=== PATIENT | male | born 1955 | race Caucasian/White ===

== ENCOUNTER 2018-04-03 12:30 | Emergency (ER) | payer OTHER ==
--- OUTSIDE RECORDS SUMMARY | 2018-04-03 12:32 | XMS REPORT ---
:1955 Author Organization eClinicalWorks Care Team Providers Name Role Phone Ajit Rafa Provider Role Unavailable Allergies No Known Allergies Problems Problem Type Condition Code Onset Dates Condition Status Assessment Uncontrolled type 2 diabetes E11.65 Active mellitus with hyperglycemia, without long-term current use of insulin Problem Uncontrolled type 2 diabetes E11.65 Active mellitus with hyperglycemia, without long-term current use of insulin Problem Cataract H26.9 Active Problem Diabetes type 2, controlled E11.9 Active Problem Benign essential HTN I10 Active Problem Hyperlipidemia, mixed E78.2 Active Problem CA of prostate C61 Active Problem Glaucoma H40.9 Active Problem Erectile dysfunction N52.9 Active Medications Medication Code System Code Instructions Start Date End Date Status Dosage Jardiance [facility] 18583268205 25 MG Orally Once Active 1 tablet a day Results No Known Results Summary Purpose eClinicalWorks Submission
--- OUTSIDE RECORDS SUMMARY | 2018-04-03 12:32 | XMS REPORT ---
:1955 Author Organization eClinicalWorks Care Team Providers Name Role Phone Rafa Fong Provider Role Unavailable Allergies No Known Allergies [...] H40.9 Active Problem Erectile dysfunction N52.9 Active Assessment CA of prostate C61 Active Assessment Erectile dysfunction N52.9 Active Assessment Cataract H26.9 Active Assessment Hyperlipidemia, mixed E78.2 Active Assessment Glaucoma H40.9 Active Assessment Benign essential HTN I10 Active Medications Medication Code Code Instructions Start End Status Dosage System Date Date Metformin HCl ND 81298700015 1000 MG Orally Active 1 tablet Twice a day with meals Jardiance [facility] 64033383485 25 MG Orally May 25, Active 1 tablet Once a day 2017 Aspir-81 [facility] 54241976701 81 MG Orally Active 1 tablet Once a day Hyzaar [facility] 92633680984 100-25 MG Orally Active 1 tablet Once a day Victoza [facility] 32233381364 18 MG/3ML May 25, Active as directed Subcutaneous 2017 once a day Cialis ND 76187077441 10 MG Orally Active 1 tablet as needed Combigan [facility] 80515132996 0.2-0.5 % Active 1 drop into Ophthalmic Twice affected a day eye Livalo ND 52992185024 2 MG Orally Once Feb 24, Active 1 tablet a day 2017 Amlodipine ND 90778271813 10 MG Orally Active 1 tablet Besylate Once a day Lumigan ND 52609660578 0.01 % Active 1 drop into Ophthalmic Once affected a day eye in the evening Results No Known Results Summary Purpose eClinicalWorks Submission
--- OUTSIDE RECORDS SUMMARY | 2018-04-03 12:32 | XMS REPORT ---
:1955 Author Organization eClinicalWorks Care Team Providers Name Role Phone Rafa Fong Provider Role Unavailable Allergies No Known Allergies Problems Problem Type Condition Code Onset Dates Condition Status Assessment Benign essential HTN I10 Active Problem Uncontrolled type 2 diabetes E11.65 Active mellitus with hyperglycemia, without long-term current use of insulin Assessment Uncontrolled type 2 diabetes E11.65 Active mellitus with hyperglycemia, without long-term current use of insulin Problem Cataract H26.9 Active Problem Diabetes type 2, controlled E11.9 Active Problem Benign essential HTN I10 Active Problem Hyperlipidemia, mixed E78.2 Active Problem CA of prostate C61 Active Problem Glaucoma H40.9 Active Problem Erectile dysfunction N52.9 Active Assessment Glaucoma H40.9 Active Assessment CA of prostate C61 Active Assessment Erectile dysfunction N52.9 Active Assessment Cataract H26.9 Active Assessment Hyperlipidemia, mixed E78.2 Active Medications Medication Code Code Instructions Start End Status Dosage System Date Date Metformin HCl ND 73945228879 1000 MG Orally Active 1 tablet Twice a day with meals Lumigan [facility] 31958135828 0.01 % Active 1 drop into Ophthalmic Once affected a day eye in the evening Victoza [facility] 89511943564 18 MG/3ML January Active as directed Subcutaneous , once a day 2017 Aspir-81 ND 06459967331 81 MG Orally Active 1 tablet Once a day Hyzaar [facility] 65574821405 100-25 MG Orally Active 1 tablet Once a day Jardiance ND 81497462210 25 MG Orally January Active 1 tablet Once a day 2017 Cialis ND 32744583584 10 MG Orally Active 1 tablet as needed Combigan [facility] 21186221985 0.2-0.5 % Active 1 drop into Ophthalmic Twice affected a day eye Amlodipine ND 61751415705 10 MG Orally Active 1 tablet Besylate Once a day Results No Known Results Summary Purpose eClinicalWorks Submission
--- OUTSIDE RECORDS SUMMARY | 2018-04-03 12:32 | XMS REPORT ---
:1955 Author Organization eClinicalWorks Care Team Providers Name Role Phone Rafa Fong Provider Role Unavailable Allergies No Known Allergies Problems Problem Type Condition Code Onset Dates Condition Status Assessment Hyperlipidemia, mixed E78.2 Active Problem Uncontrolled type 2 diabetes E11.65 Active mellitus with hyperglycemia, without long-term current use of insulin Problem Cataract H26.9 Active Problem Diabetes type 2, controlled E11.9 Active Problem Benign essential HTN I10 Active Problem Hyperlipidemia, mixed E78.2 Active Problem CA of prostate C61 Active Problem Glaucoma H40.9 Active Problem Erectile dysfunction N52.9 Active Medications Medication Code Code Instructions Start End Status Dosage System Date Date Cialis [facility] 24799533145 10 MG Orally Active 1 tablet as needed Lumigan [facility] 97366870944 0.01 % Active 1 drop into Ophthalmic Once affected a day eye in the evening Combigan [facility] 11761859752 0.2-0.5 % Active 1 drop into Ophthalmic affected Twice a day eye Jardiance [facility] 19314168757 25 MG Orally May 25, Active 1 tablet Once a day 2017 Crestor ND 31309536888 5 MG Orally Mar 16, Active 1 tablet at Once a day 2018 bedtime Aspir-81 [facility] 38755383653 81 MG Orally Active 1 tablet Once a day Hyzaar [facility] 21927504990 100-25 MG Active 1 tablet Orally Once a day Amlodipine ND 48151062468 10 MG Orally Active 1 tablet Besylate Once a day Metformin HCl ND 22878056158 1000 MG Orally Active 1 tablet Twice a day with meals Victoza [facility] 19306800243 18 MG/3ML May 25, Active as directed Subcutaneous 2018 once a day Livalo ND 11240559243 2 MG Orally Feb 24, Inactive 1 tablet Once a day 2018 Results No Known Results Summary Purpose eClinicalWorks Submission
[2018-04-03] MEDS ORDERED: PANTOPRAZOLE 40 MG INJ ONE (15:02)
[2018-04-03] MEDS ORDERED: NA CHLORIDE 0.9% 1,000 ML ONE (15:02)
[2018-04-03 15:39] LABS: Absolute Lymphocytes (CBC) 1.9 K/uL (0.7-4.9); Absolute Monocytes 0.6 K/uL (0.1-1.3); Absolute Neutrophil 4.6 K/uL (1.8-8.0); Basophils % 0.4 % (0-1.3); Eosinophils % 2.3 % (0-4.4); Hematocrit 46.4 % (39.6-49.0); Lymphocytes % 26.5 % (15.3-44.8); MCH 30.2 pg (27.0-35.0); MCV 88.1 fL (80-100); MPV 8.9 fL (7.6-11.3); Monocytes % 8.4 % (3.3-12.3); RBC Red Blood Cell Count 5.26 M/uL (4.33-5.43)
[2018-04-03 15:56] LABS: Urine Blood NEGATIVE (NEG); Urine Glucose 2+ (NEG); Urine Protein NEGATIVE (NEG); Urine pH 5.5 (5.0-7.0)
[2018-04-03 15:59] LABS: ALT/SGPT 68 U/L (12-78); AST/SGOT 34 U/L (15-37); Albumin 3.8 g/dL (3.4-5.0); Alkaline Phosphatase 53 U/L (45-117); BUN Blood Urea Nitrogen 15 mg/dL (7-18); Bicarbonate 24 mmol/L (21-32); Bilirubin Direct 0.1 mg/dL (0-0.2); Bilirubin Total 0.6 mg/dL (0.2-1.0); Glucose Level 93 mg/dL (74-106); Lipase 188 U/L (73-393); Potassium 3.5 mmol/L (3.5-5.1); Protein, Total 7.2 g/dL (6.4-8.2); Sodium Level 141 mmol/L (136-145); Troponin I < 0.02 ng/mL (0.0-0.045)
[2018-04-03 16:12] LABS: Urine Bacteria <20 /HPF (NONE SEEN); Urine Culture Reflex Order NOT NEEDED; Urine RBC <5 /HPF (NONE SEEN)
--- NOTE | 2018-04-03 16:51 | RAD REPORT ---
EXAM DESCRIPTION: CT - Abdomen Pelvis W Contrast - 04/03/2018 4:22 pm CLINICAL HISTORY: Abdominal pain/upper abdominal pain for 3 weeks COMPARISON: none. TECHNIQUE: Computed axial tomography of the abdomen pelvis was obtained. 100 cc Isovue-300 was admin istered intravenously. Oral contrast was not requested which limits evaluation of bowel. All CT scans are performed using dose optimization technique as appropriate and may include automated exposure control or mA/KV adjustment according to patient size. FINDINGS: Fatty infiltration liver is present. Spleen, pancreas, and adrenals appear unremarkable. A small calcified splenic arterial aneurysm is pr esent. Small renal cysts are present. There is no evidence of diverticulitis. The appendix is normal Inguinal hernias contain fat The gallbladder is mildly distended. Gallbladder wall thickness is normal IMPRESSION: Mild gallbladder distention
--- NOTE | 2018-04-03 17:17 | EDPHYS ---
Physician Documentation [facility] Name: Yariel Vaughn Jr Age: 63 yrs Sex: Male : 1955 Arrival Date: 04/03/2018 Time: 12:34 Bed 25 Private MD: ED Physician Mian Saab HPI: 04/03 15:48 This 63 yrs old Male presents to ER via Ambulatory with complaints of wa Abdominal Pain, Black/Tarry Stools. 15:48 The patient presents to the emergency department dark tarry stools. Onset: The wa symptoms/episode began/occurred 3 day(s) ago. Abdominal pain: described as achy, located in the epigastric area, right upper quadrant and left upper quadrant, that does not radiate. Modifying factors: The symptoms are alleviated by nothing, the symptoms are aggravated by nothing. Associated signs and symptoms: Pertinent negatives: chest pain, diarrhea, fever, shortness of breath, syncope, vomiting. Severity of symptoms: At their worst the symptoms were moderate in the emergency department the symptoms are unchanged. The patient has not experienced similar symptoms in the past. The patient has not recently seen a physician. Historical: - Allergies: 12:52 PENICILLINS; aj - Home Meds: 12:52 Victoza 2-Abhishek subcutaneous subcutaneous [Active]; amlodipine [Active]; Metformin Oral aj [Active]; losartan oral [Active]; Jardiance oral oral [Active]; - PMHx: 12:52 Diabetes - IDDM; Hypertension; Hyperlipidemia; aj - PSHx: 12:52 Tonsillectomy; aj - Immunization history:: Adult Immunizations up to date. - Social history:: Smoking status: Patient/guardian denies using tobacco. - Ebola Screening: : Patient negative for fever greater than or equal to 101.5 degrees Fahrenheit, and additional compatible Ebola Virus Disease symptoms Patient denies exposure to infectious person Patient denies travel to an Ebola-affected area in the 21 days before illness onset No symptoms or risks identified at this time. - Family history:: not pertinent. - Hospitalizations: : No recent hospitalization is reported. ROS: 15:49 Constitutional: Negative for fever, chills, and weight loss, Eyes: Negative for injury, wa pain, redness, and discharge, ENT: Negative for injury, pain, and discharge, Neck: Negative for injury, pain, and swelling, Cardiovascular: Negative for chest pain, palpitations, and edema, Respiratory: Negative for shortness of breath, cough, wheezing, and pleuritic chest pain, Back: Negative for injury and pain, : Negative for injury, bleeding, discharge, and swelling, MS/Extremity: Negative for injury and deformity, Skin: Negative for injury, rash, and discoloration, Neuro: Negative for headache, weakness, numbness, tingling, and seizure, Psych: Negative for depression, anxiety, suicide ideation, homicidal ideation, and hallucinations. 15:49 Abdomen/GI: Positive for abdominal pain, black/tarry stool, rectal bleeding, Negative for nausea, vomiting. 15:49 All other systems are negative. Exam: 15:50 Constitutional: This is a well developed, well nourished patient who is awake, alert, wa and in no acute distress. Head/Face: Normocephalic, atraumatic. Eyes: Pupils equal round and reactive to light, extra-ocular motions intact. Lids and lashes normal. Conjunctiva and sclera are non-icteric and not injected. Cornea within normal limits. Periorbital areas with no swelling, redness, or edema. ENT: Nares patent. No nasal discharge, no septal abnormalities noted. Tympanic membranes are normal and external auditory canals are clear. Oropharynx with no redness, swelling, or masses, exudates, or evidence of obstruction, uvula midline. Mucous membranes moist. Neck: Trachea midline, no thyromegaly or masses palpated, and no cervical lymphadenopathy. Supple, full range of motion without nuchal rigidity, or vertebral point tenderness. No Meningismus. Chest/axilla: Normal chest wall appearance and motion. Nontender with no deformity. No lesions are appreciated. Cardiovascular: Regular rate and rhythm with a normal S1 and S2. No gallops, murmurs, or rubs. Normal PMI, no JVD. No pulse deficits. Respiratory: Lungs have equal breath sounds bilaterally, clear to auscultation and percussion. No rales, rhonchi or wheezes noted. No increased work of breathing, no retractions or nasal flaring. Back: No spinal tenderness. No costovertebral tenderness. Full range of motion. Male : Normal genitalia with no discharge or lesions. Skin: Warm, dry with normal turgor. Normal color with no rashes, no lesions, and no evidence of cellulitis. MS/ Extremity: Pulses equal, no cyanosis. Neurovascular intact. Full, normal range of motion. Neuro: Awake and alert, GCS 15, oriented to person, place, time, and situation. Cranial nerves II-XII grossly intact. Motor strength 5/5 in all extremities. Sensory grossly intact. Cerebellar exam normal. Normal gait. 15:50 Abdomen/GI: Inspection: abdomen appears normal, Bowel sounds: normal, in all quadrants, Palpation: soft, mild abdominal tenderness, in the epigastric area and right upper quadrant. Vital Signs: 12:52 BP 120 / 91; Pulse 89; Resp 17; Temp 98.6; Pulse Ox 96% on R/A; Weight 104.33 kg; aj Height 6 ft. 2 in. (187.96 cm); 14:10 BP 122 / 81; Pulse 81; Resp 18; Pulse Ox 100% on R/A; tl3 16:05 BP 147 / 113; Pulse 75; Resp 18; Pulse Ox 98% ; tl3 17:39 BP 140 / 91; Pulse 70; Resp 18; Pulse Ox 98% on R/A; mg2 12:52 Body Mass Index 29.53 (104.33 kg, 187.96 cm) MDM: 13:13 Patient medically screened. wa 15:51 Differential diagnosis: upper GI bleed secondary to PUD?. wa 15:52 Data reviewed: vital signs, nurses notes. Test interpretation: by ED physician or sc midlevel provider: EKG: HR 79. sinus. occasional PVC.. 17:13 Test interpretation: by ED physician or midlevel provider: normal labs. EKG: HR 79. wa occasional PVC. Response to treatment: the patient's symptoms have markedly improved after treatment. ED course: no noted dark stools in ED. vitals and labs wnl. do not have GI director of industrial relations. will start protonix Q day and have f/u closely with GI. advised immediate return for rapid worsening. 04/03 13:40 Order name: Basic Metabolic Panel; Complete Time: 17:00 04/03 13:40 Order name: CBC with Diff; Complete Time: 15:47 sc 04/03 13:40 Order name: Hepatic Function; Complete Time: 17:00 04/03 13:40 Order name: Lipase; Complete Time: 17:00 04/03 13:40 Order name: Urine Microscopic Only; Complete Time: 17:00 sc 04/03 13:40 Order name: Type And Screen; Complete Time: 17: sc 04/03 13:40 Order name: IV Saline Lock; Complete Time: 15: sc 04/03 13:40 Order name: Labs collected and sent; Complete Time: 15:04/03 13:40 Order name: Troponin I; Complete Time: 17: sc 04/03 13:41 Order name: CT Abd/Pelvis - W/Contrast; Complete Time: 17: sc 04/03 15:35 Order name: Urine Dipstick--Ancillary (enter results); Complete Time: 17: 04/03 13:40 Order name: Urine Dipstick-Ancillary (obtain specimen); Complete Time: 15: sc 04/03 13:40 Order name: EKG - Nurse/Tech; Complete Time: 14:30 sc Administered Medications: Discontinued: ProTONIX 8 mg/hr IV at 25 ml/hr continuous; (Standard dilution is 80 mg in 250 mL NS) 15:10 Drug: ProTONIX 40 mg Route: IVP; Site: right forearm; tl3 17:41 Follow up: Response: No adverse reaction mg2 15:10 Drug: ProTONIX 8 mg/hr Route: IV; Rate: 25 ml/hr; Site: right forearm; tl3 15:10 Drug: NS 0.9% 1000 ml Route: IV; Rate: 1 bolus; Site: right forearm; Delivery: Primary tl3 tubing; 17:41 Follow up: IV Status: Completed infusion; IV Intake: 1000ml mg2 Disposition: 04/03/18 17:16 Discharged to Home. Impression: Acute Abdomimal Pain, Dark Tarry Stools. - Condition is Stable. - Discharge Instructions: Abdominal Pain, Adult, Gastrointestinal Bleeding, Crez-ql-Uide. - Prescriptions for Protonix 40 mg Oral Tablet - take 1 tablet by ORAL route once daily; 30 tablet. Zofran 4 mg Oral Tablet - take 1 tablet by ORAL route every 12 hours As needed; 20 tablet. - Medication Reconciliation Form, Thank You Letter, Antibiotic Education, Prescription Opioid Use form. - Follow up: Mian Pelaez MD; When: 1 - 2 days. Follow up: Josee Coyne MD; When: 1 - 2 days; Reason: Recheck today's complaints. - Problem is new. - Symptoms have improved. - Notes: the concern is you may be having a bleeding gastric or duodenal ulcer. your labs and scan are normal at this time. retirn here if rapidly worsening. call the 2 gastro doctors and make appointment to be seen immediately. you will need endoscopy. take protonix as prescribed. you may take tylenol for pain but do not inget NSAIDs as discussed with you Signatures: Dispatcher [employer] EDRhea Monet RN RN aj Mian Saab MD MD wa Lowrey, Tammy, RN RN tl3 Hamzah Adrian RN RN mg2 Corrections: (The following items were deleted from the chart) 17:43 17:16 04/03/2018 17:16 Discharged to Home. Impression: Acute Abdomimal Pain; Dark Tarry mg2 Stools. Condition is Stable. Forms are Medication Reconciliation Form, Thank You Letter, Antibiotic Education, Prescription Opioid Use. Follow up: Mian Pelaez; When: 1 - 2 days. Follow up: Josee Coyne; When: 1 - 2 days; Reason: Recheck today's complaints. Problem is new. Symptoms have improved. lara
--- NOTE | 2018-04-03 17:17 | ER ---
Nurse's Notes [facility] Name: Yariel Vaughn Jr Age: 63 yrs Sex: Male : 1955 Arrival Date: 04/03/2018 Time: 12:34 Bed 25 Private MD: Diagnosis: Acute Abdomimal Pain;Dark Tarry Stools Presentation: 04/03 12:49 Presenting complaint: Patient states: Upper abdominal pain for 3 weeks with black tarry aj stools. Transition of care: patient was not received from another setting of care. Onset of symptoms was March 12, 2018. Risk Assessment: Do you want to hurt yourself or someone else? Patient reports no desire to harm self or others. Initial Sepsis Screen: Does the patient meet any 2 criteria? No. Patient's initial sepsis screen is negative. Does the patient have a suspected source of infection? No. Patient's initial sepsis screen is negative. Care prior to arrival: None. 12:49 Method Of Arrival: Ambulatory aj 12:49 Acuity: THEODORE 3 aj Triage Assessment: 12:52 General: Appears in no apparent distress. comfortable, Behavior is calm, cooperative, aj appropriate for age. Pain: Complains of pain in epigastric area, right upper quadrant and left upper quadrant. Neuro: Level of Consciousness is awake, alert, obeys commands, Oriented to person, place, time, situation, Appropriate for age. Respiratory: Airway is patent Respiratory effort is even, unlabored, Respiratory pattern is regular, symmetrical. GI: Reports upper abdominal pain, bloody stool. Derm: Skin is intact, is healthy with good turgor, Skin is pink, warm \T\ dry. normal. Historical: - Allergies: 12:52 PENICILLINS; aj - Home Meds: 12:52 Victoza 2-Abhishek subcutaneous subcutaneous [Active]; amlodipine [Active]; Metformin Oral aj [Active]; losartan oral [Active]; Jardiance oral oral [Active]; - PMHx: 12:52 Diabetes - IDDM; Hypertension; Hyperlipidemia; aj - PSHx: 12:52 Tonsillectomy; aj - Immunization history:: Adult Immunizations up to date. - Social history:: Smoking status: Patient/guardian denies using tobacco. - Ebola Screening: : Patient negative for fever greater than or equal to 101.5 degrees Fahrenheit, and additional compatible Ebola Virus Disease symptoms Patient denies exposure to infectious person Patient denies travel to an Ebola-affected area in the 21 days before illness onset No symptoms or risks identified at this time. - Family history:: not pertinent. - Hospitalizations: : No recent hospitalization is reported. Screenin:15 Abuse screen: Denies threats or abuse. Nutritional screening: No deficits noted. tl3 Tuberculosis screening: No symptoms or risk factors identified. Fall Risk None identified. Assessment: 13:15 General: Appears in no apparent distress. comfortable, slender, well groomed, well tl3 developed, well nourished, Behavior is calm, cooperative, appropriate for age. Pain: Complains of pain in abdomen and left upper quadrant and right upper quadrant and epigastric area. Neuro: Level of Consciousness is awake, alert, obeys commands, Oriented to person, place, time, situation, Appropriate for age. Cardiovascular: Patient's skin is warm and dry. Respiratory: Airway is patent Respiratory effort is even, unlabored, Respiratory pattern is regular, symmetrical. GI: Abdomen is round Bowel sounds present X 4 quads. Abd is soft. : No signs and/or symptoms were reported regarding the genitourinary system. Urine is clear. EENT: No signs and/or symptoms were reported regarding the EENT system. Derm: No signs and/or symptoms reported regarding the dermatologic system. Musculoskeletal: No signs and/or symptoms reported regarding the musculoskeletal system. 15:46 Reassessment: Patient appears in no apparent distress at this time. No changes from tl3 previously documented assessment. Patient and/or family updated on plan of care and expected duration. Pain level reassessed. Patient is alert, oriented x 3, equal unlabored respirations, skin warm/dry/pink. no needs at this time. 17:39 Reassessment: Patient appears in no apparent distress at this time. No changes from mg2 previously documented assessment. Patient and/or family updated on plan of care and expected duration. Pain level reassessed. Patient is alert, oriented x 3, equal unlabored respirations, skin warm/dry/pink. Vital Signs: 12:52 BP 120 / 91; Pulse 89; Resp 17; Temp 98.6; Pulse Ox 96% on R/A; Weight 104.33 kg; aj Height 6 ft. 2 in. (187.96 cm); 14:10 BP 122 / 81; Pulse 81; Resp 18; Pulse Ox 100% on R/A; tl3 16:05 BP 147 / 113; Pulse 75; Resp 18; Pulse Ox 98% ; tl3 17:39 BP 140 / 91; Pulse 70; Resp 18; Pulse Ox 98% on R/A; mg2 12:52 Body Mass Index 29.53 (104.33 kg, 187.96 cm) aj ED Course: 12:34 Patient arrived in ED. mr 12:51 Triage completed. aj 12:52 Arm band placed on left wrist. Patient placed in waiting room, Patient notified of wait aj time. 13:10 Patient has correct armband on for positive identification. Placed in gown. Bed in low tl3 position. Call light in reach. 13:12 Toshia Schulz, RN is Primary Nurse. tl3 13:13 Mian Saab MD is Attending Physician. wa 13:15 Pulse ox on. NIBP on. Warm blanket given. tl3 13:15 Served as a field contact person during rectal exam. tl3 13:30 EKG done, by ED staff, reviewed by Mian Saab MD. [facility] 14:12 Radiology exam delayed due to lab results not completed at this time. (BUN/Creatinine). 15:19 Initial lab(s) drawn, by ct, sent to lab. Urine collected: clean catch specimen. tl3 Inserted saline lock: 20 gauge in right forearm, using aseptic technique. Blood collected. 16:21 CT completed. Patient moved to CT via wheelchair. Patient moved back from CT. cw1 16:23 CT Abd/Pelvis - W/Contrast In Process Unspecified. EDIL 17:15 Mian Pelaez MD is Referral Physician. wa 17:15 Josee Coyne MD is Referral Physician. wa 17:39 IV discontinued, intact, bleeding controlled, No redness/swelling at site. Pressure mg2 dressing applied. Administered Medications: Discontinued: ProTONIX 8 mg/hr IV at 25 ml/hr continuous; (Standard dilution is 80 mg in 250 mL NS) 15:10 Drug: ProTONIX 40 mg Route: IVP; Site: right forearm; tl3 17:41 Follow up: Response: No adverse reaction mg2 15:10 Drug: ProTONIX 8 mg/hr Route: IV; Rate: 25 ml/hr; Site: right forearm; tl3 15:10 Drug: NS 0.9% 1000 ml Route: IV; Rate: 1 bolus; Site: right forearm; Delivery: Primary tl3 tubing; 17:41 Follow up: IV Status: Completed infusion; IV Intake: 1000ml mg2 Intake: 17:41 IV: 1000ml; Total: 1000ml. mg2 Outcome: 17:16 Discharge ordered by . lara 17:39 Discharged to home ambulatory. mg2 17:39 Condition: stable 17:39 Discharge instructions given to patient, Instructed on discharge instructions, follow up and referral plans. medication usage, Demonstrated understanding of instructions, follow-up care, medications, Prescriptions given X 2. 17:43 Patient left the ED. mg2 Signatures: Dispatcher [employer] EDMS Rhea Hawthorne, RN RN Rosalee Wisdom, Sheree Adhikari, Shira 1 Rosalee Nguyen [facility] Mian Saab MD MD wa Lowrey, Tammy, RN RN tl3 Hamzah Adrian RN RN mg2 Corrections: (The following items were deleted from the chart) 15:47 13:15 BP 122 / 81; Pulse 81bpm; Resp 18bpm; Pulse Ox 100% RA; tl3 tl3
--- NOTE | 2018-04-05 06:56 | EKG ---
Test Date: 2018-04-03 Test Time: 13:34:58 Unit Director: MILTON MEASUREMENT RESULTS: Intervals: Rate: 79 IA: 166 QRSD: 84 QT: 406 QTc: 465 [place]: P: 54 IA: 166 QRS: 2 T: 44 INTERPRETIVE STATEMENTS: Sinus rhythm with occasional premature ventricular complexes Otherwise normal ECG Compared to ECG 01/16/2015 15:12:46 Ventricular premature complex(es) now present Electronically Signed On 04-05-18 06:51:45 CDT by Fransisco Piedra
== END 2018-04-03 17:43 | disposition home or self-care (01) ==
LOC: ER 12:30
DX: R10.9 Unspecified abdominal pain (principal); R19.5 Other fecal abnormalities; E11.9 Type 2 diabetes mellitus without complications; I10 Essential (primary) hypertension; E78.5 Hyperlipidemia, unspecified; Z88.0 Allergy status to penicillin
CPT/HCPCS: 36415; 74177; 80048; 80076; 81003; 81015; 83690; 84484; 85025; 86850; 86900; 86901; 93005; 96361; 96374; 99285; C9113; J7030; Q9967

== ENCOUNTER 2018-06-10 11:57 | Emergency (ER) | payer OTHER ==
--- OUTSIDE RECORDS SUMMARY | 2018-06-10 11:58 | XMS REPORT ---
[...] Dosage System Date Date Metformin HCl ND 54412581373 1000 MG Orally Active 1 tablet Twice a day with meals Lumigan [facility] 00286683195 0.01 % Active 1 drop into Ophthalmic Once affected a day eye in the evening Victoza [facility] 02328786850 18 MG/3ML January Active as directed Subcutaneous , once a day 2017 Aspir-81 ND 94044937062 81 MG Orally Active 1 tablet Once a day Hyzaar [facility] 84838503633 100-25 MG Orally Active 1 tablet Once a day Jardiance ND 28661336379 25 MG Orally January Active 1 tablet Once a day 2017 Cialis ND 44513584031 10 MG Orally Active 1 tablet as needed Combigan [facility] 25274236677 0.2-0.5 % Active 1 drop into Ophthalmic Twice affected a day eye Amlodipine ND 40086073387 10 MG Orally Active 1 tablet Besylate Once a day Results No Known Results Summary Purpose eClinicalWorks Submission
--- OUTSIDE RECORDS SUMMARY | 2018-06-10 11:58 | XMS REPORT ---
[...] End Status Dosage System Date Date Cialis [facility] 11920737262 10 MG Orally Active 1 tablet as needed Lumigan [facility] 93914799541 0.01 % Active 1 drop into Ophthalmic Once affected a day eye in the evening Combigan [facility] 30021380146 0.2-0.5 % Active 1 drop into Ophthalmic affected Twice a day eye Jardiance [facility] 12738289877 25 MG Orally May 25, Active 1 tablet Once a day 2017 Crestor ND 45116753362 5 MG Orally Mar 16, Active 1 tablet at Once a day 2018 bedtime Aspir-81 [facility] 94174823983 81 MG Orally Active 1 tablet Once a day Hyzaar [facility] 86450371186 100-25 MG Active 1 tablet Orally Once a day Amlodipine ND 30492742321 10 MG Orally Active 1 tablet Besylate Once a day Metformin HCl ND 55178574321 1000 MG Orally Active 1 tablet Twice a day with meals Victoza [facility] 97239056789 18 MG/3ML May 25, Active as directed Subcutaneous 2018 once a day Livalo ND 23055864678 2 MG Orally Feb 24, Inactive 1 tablet Once a day 2018 Results No Known Results Summary Purpose eClinicalWorks Submission
--- OUTSIDE RECORDS SUMMARY | 2018-06-10 11:58 | XMS REPORT ---
[...] Dosage System Date Date Metformin HCl ND 63630428762 1000 MG Orally Active 1 tablet Twice a day with meals Jardiance [facility] 14750226864 25 MG Orally May 25, Active 1 tablet Once a day 2017 Aspir-81 [facility] 97981679538 81 MG Orally Active 1 tablet Once a day Hyzaar [facility] 59193342236 100-25 MG Orally Active 1 tablet Once a day Victoza [facility] 29166280382 18 MG/3ML May 25, Active as directed Subcutaneous 2017 once a day Cialis ND 55291123082 10 MG Orally Active 1 tablet as needed Combigan [facility] 93334413054 0.2-0.5 % Active 1 drop into Ophthalmic Twice affected a day eye Livalo ND 79824227563 2 MG Orally Once Feb 24, Active 1 tablet a day 2017 Amlodipine ND 97010711572 10 MG Orally Active 1 tablet Besylate Once a day Lumigan ND 98500924120 0.01 % Active 1 drop into Ophthalmic Once affected a day eye in the evening Results No Known Results Summary Purpose eClinicalWorks Submission
--- OUTSIDE RECORDS SUMMARY | 2018-06-10 11:58 | XMS REPORT ---
[...] Start Date End Date Status Dosage Jardiance [facility] 71321757111 25 MG Orally Once Active 1 tablet a day Results No Known Results Summary Purpose eClinicalWorks Submission
--- NOTE | 2018-06-10 13:00 | RAD REPORT ---
EXAM DESCRIPTION: RAD - Hand Right 3 View - 06/10/2018 12:40 pm CLINICAL HISTORY: laceration injury COMPARISON: No comparisons FINDINGS: Fourth digit mallet finger deformity is seen. Small bony avulsion is likely present the DI P joint. Soft tissue laceration also present region. Elsewhere, a fracture or dislocation is seen.
[2018-06-10] MEDS ORDERED: CEFAZOLIN SODIUM 1 GM/VIAL ONE (13:10)
[2018-06-10] MEDS ORDERED: LIDOCAINE 1% MPF 5 ML VIAL ONE (13:10)
[2018-06-10] MEDS ORDERED: TETANUS & DIPHTHERIA TOX,ADULT 0.5 ML VIAL ONE (13:10)
[2018-06-10] MEDS ORDERED: WATER FOR INJ,STERILE 10 ML ONE (13:13)
--- NOTE | 2018-06-10 13:46 | ER ---
Nurse's Notes [facility] Name: Yariel Vaughn Jr Age: 63 yrs Sex: Male : 1955 Arrival Date: 06/10/2018 Time: 11:59 Bed 13 Private MD: Rafa Fong Diagnosis: Laceration without foreign body of finger without damage to nail-Right Fourth;Avulsion Fracture of DIP joint right fourth Finger Presentation: 06/10 12:10 Presenting complaint: Patient states: A cup fell out of the cabinet and broke on his aj1 right ring finger. Laceration noted to right ring finger, no bleeding noted at this time. Right ring finger is bent at the first knuckle, patient states that he is unable to straighten it. Transition of care: patient was not received from another setting of care. Onset of symptoms was June 10, 2018. Risk Assessment: Do you want to hurt yourself or someone else? Patient reports no desire to harm self or others. Initial Sepsis Screen: Does the patient meet any 2 criteria? No. Patient's initial sepsis screen is negative. Does the patient have a suspected source of infection? No. Patient's initial sepsis screen is negative. Care prior to arrival: None. 12:10 Method Of Arrival: Ambulatory aj1 12:10 Acuity: THEODORE 4 aj1 Triage Assessment: 12:12 General: Appears in no apparent distress. comfortable, Behavior is calm, cooperative, aj1 appropriate for age. Pain: Complains of pain in dorsal aspect of distal phalanx of right ring finger Pain currently is 5 out of 10 on a pain scale. Neuro: Level of Consciousness is awake, alert, obeys commands. Cardiovascular: Patient's skin is warm and dry. Respiratory: Airway is patent Respiratory effort is even, unlabored, Respiratory pattern is regular, symmetrical. Historical: - Allergies: 12:12 PENICILLINS; aj1 - Home Meds: 12:12 Amlodipine [Active]; Jardiance Oral [Active]; losartan Oral [Active]; Metformin Oral aj1 [Active]; Victoza 2-Abhishek subcutaneous [Active]; - PMHx: 12:12 Diabetes - IDDM; Hyperlipidemia; Hypertension; aj1 - PSHx: 12:12 None; aj1 - Immunization history:: Flu vaccine is not up to date. - Social history:: Smoking status: Patient/guardian denies using tobacco. - Ebola Screening: : Patient denies travel to an Ebola-affected area in the 21 days before illness onset. Screenin:21 Abuse screen: Denies threats or abuse. Denies injuries from another. Nutritional hj screening: No deficits noted. Tuberculosis screening: No symptoms or risk factors identified. Fall Risk None identified. Assessment: 12:22 General: Appears in no apparent distress. uncomfortable, Behavior is calm, cooperative, hj appropriate for age. Pain: Complains of pain in dorsal aspect of distal phalanx of right ring finger. Neuro: Level of Consciousness is awake, alert, obeys commands, Oriented to person, place, time, situation, Appropriate for age. Cardiovascular: Capillary refill < 3 seconds Patient's skin is warm and dry. Respiratory: Airway is patent Respiratory effort is even, unlabored, Respiratory pattern is regular, symmetrical. GI: No signs and/or symptoms were reported involving the gastrointestinal system. : No signs and/or symptoms were reported regarding the genitourinary system. EENT: No signs and/or symptoms were reported regarding the EENT system. Derm: No signs and/or symptoms reported regarding the dermatologic system. Musculoskeletal: Reports pain in dorsal aspect of distal phalanx of right ring finger. 13:44 Reassessment: Patient and/or family updated on plan of care and expected duration. Pain hj level reassessed. Patient is alert, oriented x 3, equal unlabored respirations, skin warm/dry/pink. splint applied on affected area, wound care done; blood clots cleaned with Hibiclens; dressing wrapped with coband;. Vital Signs: 12:12 BP 135 / 92; Pulse 86; Resp 18; Temp 97.4; Pulse Ox 98% on R/A; Weight 104.33 kg (R); aj1 Height 6 ft. 1 in. (185.42 cm) (R); Pain 5/10; 13:00 BP 130 / 89; Pulse 84; Resp 18; Pulse Ox 100% on R/A; hj 14:06 BP 129 / 88; Pulse 86; Resp 18; Pulse Ox 100% on R/A; hj 12:12 Body Mass Index 30.34 (104.33 kg, 185.42 cm) aj1 ED Course: 11:59 Patient arrived in ED. mr 12:00 Rafa Fong DO is Private Physician. mr 12:07 Patient's name was called from ER lobby. No response. aj1 12:11 Triage completed. aj1 12:12 Arm band placed on Patient placed in an exam room. aj1 12:17 Aidan El PA is PHCP. cp 12:17 Sarah Marquez MD is Attending Physician. cp 12:21 Collin Paz RN is Primary Nurse. hj 12:21 Patient has correct armband on for positive identification. Bed in low position. Call hj light in reach. Side rails up X 1. Adult w/ patient. 12:33 X-ray completed. Portable x-ray completed in exam room. Patient tolerated procedure kp1 well. 12:34 XRAY Hand RIGHT 3 View In Process Unspecified. EDMS 12:35 Irrigation of laceration on dorsal aspect of distal phalanx of right ring finger hj irrigated with normal saline Betadine solution Patient tolerated well. 13:41 Ricardo Ware MD is Referral Physician. cp 14:04 No provider procedures requiring assistance completed. Patient did not have IV access hj during this emergency room visit. 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 Exp: 04/07/2020. Lot #: [id number]. } Route: IM; Site: left deltoid; 13:15 Follow up: Response: No adverse reaction hj 13:00 Drug: Ancef 1 grams Route: IM; Site: right deltoid; hj 13:15 Follow up: Response: No adverse reaction hj Outcome: 13:45 Discharge ordered by MD. cp 14:04 Discharged to home ambulatory. hj 14:04 Condition: stable 14:04 Discharge instructions given to patient, Instructed on discharge instructions, medication usage, wound care, splint care; Demonstrated understanding of instructions, follow-up care, medications, wound care, splint care, Prescriptions given X 1. 14:07 Patient left the ED. hj Signatures: Dispatcher [employer] EDMS Gabrielle Ruiz RN RN aj1 Jamilah Arias mr Collin Paz RN Aidan Potts PA PA cp Daily [facility]
--- NOTE | 2018-06-10 13:46 | EDPHYS ---
Physician Documentation [facility] Name: Yariel Vaughn Jr Age: 63 yrs Sex: Male : 1955 Arrival Date: 06/10/2018 Time: 11:59 Bed 13 Private MD: Rafa Fong ED Physician Sarah Marquez HPI: 06/10 12:25 This 63 yrs old Male presents to ER via Ambulatory with complaints of Finger cp laceration. 12:25 The patient or guardian reports injury, a laceration, clean. cp 12:25 The complaints affect the DIP of right ring finger. Context: The problem was sustained cp at home, resulted from broken glass. Onset: The symptoms/episode began/occurred just prior to arrival. Associated signs and symptoms: Pertinent positives: mallet deformity of finger, Pertinent negatives: cyanosis distally, decreased sensation distally, numbness distally, tingling distally. Severity of symptoms: in the emergency department the symptoms are unchanged, despite home interventions. Historical: - Allergies: 12:12 PENICILLINS; aj1 - Home Meds: 12:12 Amlodipine [Active]; Jardiance Oral [Active]; losartan Oral [Active]; Metformin Oral aj1 [Active]; Victoza 2-Abhishek subcutaneous [Active]; - PMHx: 12:12 Diabetes - IDDM; Hyperlipidemia; Hypertension; aj1 - PSHx: 12:12 None; aj1 - Immunization history:: Flu vaccine is not up to date. - Social history:: Smoking status: Patient/guardian denies using tobacco. - Ebola Screening: : Patient denies travel to an Ebola-affected area in the 21 days before illness onset. ROS: 12:30 Constitutional: Negative for body aches, chills, fever, poor PO intake. cp 12:30 Eyes: Negative for injury, pain, redness, and discharge. cp 12:30 ENT: Negative for drainage from ear(s), ear pain, sore throat, difficulty swallowing, difficulty handling secretions. 12:30 Cardiovascular: Negative for chest pain, palpitations. 12:30 Respiratory: Negative for cough, shortness of breath, wheezing. 12:30 MS/extremity: Positive for injury or acute deformity, decreased range of motion, laceration, of the dorsal aspect right fourth finger. 12:30 All other systems are negative. Exam: 12:35 Constitutional: The patient appears in no acute distress, alert, awake, well developed, cp well nourished. 12:35 Head/Face: Normocephalic, atraumatic. cp 12:35 Eyes: Periorbital structures: appear normal, Conjunctiva: normal, Lids and lashes: appear normal, bilaterally. 12:35 ENT: External ear(s): are unremarkable, Nose: is normal, Mouth: is normal. 12:35 Chest/axilla: Inspection: normal. 12:35 Cardiovascular: Rate: normal. 12:35 Respiratory: the patient does not display signs of respiratory distress, Respirations: normal. 12:35 Abdomen/GI: Exam negative for discomfort, distension, guarding, Inspection: abdomen appears normal. 12:35 Musculoskeletal/extremity: Extremities: grossly normal except: noted in the DIP of right ring finger: decreased ROM, laceration, mallet finger deformity noted, Perfusion: the extremity is normally perfused throughout, Sensation intact. Tendon exam: postive for complete laceration DIP of right ring finger. Vital Signs: 12:12 BP 135 / 92; Pulse 86; Resp 18; Temp 97.4; Pulse Ox 98% on R/A; Weight 104.33 kg (R); aj1 Height 6 ft. 1 in. (185.42 cm) (R); Pain 5/10; 13:00 BP 130 / 89; Pulse 84; Resp 18; Pulse Ox 100% on R/A; hj 14:06 BP 129 / 88; Pulse 86; Resp 18; Pulse Ox 100% on R/A; hj 12:12 Body Mass Index 30.34 (104.33 kg, 185.42 cm) aj1 MDM: 12:17 Patient medically screened. cp 13:03 Physician consultation: Ricardo Ware MD was called at 12:45, was contacted at 12:45, regarding patient's condition, outpatient follow-up, next week, and will see patient in office 06-14-2018, for follow-up. 13:44 Data reviewed: vital signs, nurses notes, radiologic studies, plain films. cp 13:44 Counseling: I had a detailed discussion with the patient and/or guardian regarding: the cp historical points, exam findings, and any diagnostic results supporting the discharge/admit diagnosis, radiology results, the need for outpatient follow up, for definitive care, a hand specialist, to return to the emergency department if symptoms worsen or persist or if there are any questions or concerns that arise at home. Response to treatment: the patient's symptoms have mildly improved after treatment. Special discussion: I discussed in detail with the patient the higher chance of wound infection based on his presenting history. 06/10 12:23 Order name: XRAY Hand RIGHT 3 View; Complete Time: 13:02 cp 06/10 13:02 Interpretation: Report reviewed. 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 Exp: 04/07/2020. Lot #: [id number]. } Route: IM; Site: left deltoid; 13:15 Follow up: Response: No adverse reaction 13:00 Drug: Ancef 1 grams Route: IM; Site: right deltoid; 13:15 Follow up: Response: No adverse reaction Disposition: 18:35 Co-signature as Attending Physician, Sarah Marquez MD. ma2 Disposition: 06/10/18 13:45 Discharged to Home. Impression: Laceration without foreign body of finger without damage to nail - Right Fourth, Avulsion Fracture of DIP joint right fourth Finger. - Condition is Stable. - Discharge Instructions: Finger Fracture, Laceration Care, Adult, Mallet Finger. - Prescriptions for Keflex 500 mg Oral Capsule - take 1 capsule by ORAL route every 6 hours for 10 days; 40 capsule. - Medication Reconciliation Form, Thank You Letter, Antibiotic Education, Prescription Opioid Use form. - Follow up: Ricardo Ware MD; When: 06/14/2018; Reason: Wound Recheck. Signatures: Dispatcher [employer] EDGabrielle Rodriguez RN RN aj1 Collin Paz RN RN Aidan Ochoa PA PA Sarah Marquez MD MD ma2 Corrections: (The following items were deleted from the chart) 13:47 13:45 06/10/2018 13:45 Discharged to Home. Impression: Laceration without foreign body cp of finger without damage to nail - Right Fourth. Condition is Stable. Forms are Medication Reconciliation Form, Thank You Letter, Antibiotic Education, Prescription Opioid Use. Follow up: Ricardo Ware; When: 06/14/2018; Reason: Wound Recheck. cp 14:07 13:47 06/10/2018 13:45 Discharged to Home. Impression: Laceration without foreign body hj of finger without damage to nail - Right Fourth; Avulsion Fracture of DIP joint right fourth Finger. Condition is Stable. Forms are Medication Reconciliation Form, Thank You Letter, Antibiotic Education, Prescription Opioid Use. Follow up: Ricardo Ware; When: 06/14/2018; Reason: Wound Recheck. cp
== END 2018-06-10 14:07 | disposition home or self-care (01) ==
LOC: ER 11:57
DX: S62.634A Displaced fracture of distal phalanx of right ring finger, initial encounter for closed fracture (principal); W25.XXXA Contact with sharp glass, initial encounter; Y93.9 Activity, unspecified; Y92.009 Unspecified place in unspecified non-institutional (private) residence as the place of occurrence of the external cause; I10 Essential (primary) hypertension; E11.9 Type 2 diabetes mellitus without complications; Z23 Encounter for immunization; Z79.4 Long term (current) use of insulin; Z88.0 Allergy status to penicillin
CPT/HCPCS: 90714; 96372; 99284; J0690

== ENCOUNTER 2020-11-20 09:08 | Emergency (ER) | payer OTHER ==
--- OUTSIDE RECORDS SUMMARY | 2020-11-20 09:11 | XMS REPORT | Continuity of Care Document ---
:1955 Author Organization [facility] t Address [address] [place] [address] Care Team Providers Name Role Phone Unavailable Unavailable Unavailable Problems This patient has no known problems. Allergies, Adverse Reactions, Alerts Allergy Allergy Status Severity Reaction(s) Onset Inactive Treating Comm ents Source Name Type Date Date Clinician Amoxicil Adverse Active Info Not [facility] Bactrim Adverse Active Info Not [facility] DS Reaction Available [facility] Medications Ordered Filled Start Stop Current Ordering Indication Dosage Frequency Signature Comments Components Source Medication Medication Date Date Medication? Clinician (SIG) Name Name Jardiance Jardiance 2020-0 2020- No Rafa [address] [facility] 805-23 Fong [facility] :00 [facility] Metformin Metformin Yes Rafa [address] [facility] HCl HCl Fong with meals [facility] Lumigan Lumigan Yes Rafa 1 drop [facility] in the l evening [facility] ent Clinics Hyzaar Hyzaar Yes Rafa [facility] Amlodipine Amlodipine Yes Rafa [address] [facility] Besylate Besylate Fong [facility] Crestor Crestor Yes Rafa [address] [facility] Fong at bedtime [facility] Cialis Cialis Yes Rafa 1 tablet [facility] Combigan Combigan Yes Rafa [address] [facility]ong into [facility] Protonix Protonix Yes Rafa [address] [facility] Yes Rafa [address] [facility] Fong [facility] Victoza Victoza Yes Rafa INJECT 1.[address] Fogn MG [facility] USLY ONCE l DAILY. Outpati ent Clinics [facility] 2019- Rafa TAKE ONE [facility] 08[facility]07 Fong (1) [facility] TABLET(S) [facility] :00 BY MOUTH l ONCE A Outpati DAY. ent Clinics Immunizations Ordered Filled Immunization Date Status Comments [facility] e Immunization Name Name Ronaldo Higgins 2019-04-[address] [facility]00 [facility] Procedures This patient has no known procedures. Encounters Start End Encounter Admission Attending Care Care Encounter Source Date/Time Date/Time Type Type Clinicians Facility Department ID 2020-10-05 2020-10-05 Outpatient [facility] [id number] [facility] 2020-06-08 2020-06-08 Outpatient [facility] [id number] 2020-05-22 2020-05-22 Outpatient [facility] [id number] [facility] 2020-04-20 2020-04-20 Outpatient [facility] [id number] [facility] 2020-03-30 2020-03-30 Outpatient Rosendo Agrawal [id number] [facility] 08:00:00 08:00:00 t [facility] Medicine Medicine Outpati ent Clinics 2020-02-24 2020-02-24 Outpatient Rosendo Robbinst [id number] 08:00:[facility] 08:00:[address] [facility] - [address] [facility] Medicine l Medicine Outpati ent Clinics 2020-02-16 2020-02-16 [facility] [id number] 10:49:00 10:49:[address] Luke [facility] - Drive [facility] Medicine l Medicine Outpati ent Clinics 2019-11-18 2019-11-18 [facility] [id number] 09:15:00 09:15:00 [place] [employer] Luke s - Drive [facility] Medicine l Medicine Outpati ent Clinics 2019-08-25 2019-08-25 [facility] [id number] 16:52:00 16:52:00 [place] [employer] [place] - Drive [facility] Medicine l Medicine Outpati ent Clinics 2019-07-22 2019-07-22 [facility] [id number] 08:38:00 08:38:00 [place] [employer] [place] - Drive [facility] Medicine Medicine Outpati ent Clinics 2019-07-22 2019-07-22 [facility] [id number] [address] 08:00:00 08:00:00 [place] [employer] Luke s - Drive [facility] Medicine l Medicine Outpati ent Clinics 2019-07-07 2019-07-07 [facility] [id number] 16:16:00 16:16:00 [place] Drive [facility] Medicine l Medicine Outpati ent Clinics 2019-06-27 2019-06-27 [facility] [id number] 09:50:00 09:50:00 [place] [employer] Luke s - Drive [facility] Medicine l Medicine Outpati ent Clinics 2019-06-13 2019-06-13 [facility] [id number] 10:15:00 10:15:00 [place] [employer] [place] - Drive [facility] Medicine l Medicine Outpati ent Clinics 2019-04-08 2019-04-08 [facility] [id number] 08:15:00 08:15:00 [place] [employer] [place] - Drive [facility] Medicine l Medicine Outpati ent Clinics 2019-01-13 2019-01-13 [facility] [id number] 09:28:00 09:28:00 [place] [employer] [place] - Drive [facility] Medicine Medicine Outpati ent Clinics 2019-01-07 2019-01-07 [facility] [id number] 08:00:00 08:00:00 [place] [employer] [place] - Drive [facility] l Medicine Outpati ent Clinics 2018-11-26 2018-11-26 [facility] [id number] 08:00:00 08:00:00 [place] [employer] [place] - Drive [facility] l Medicine Outpati ent Clinics 2018-09-24 2018-09-24 [facility] [id number] 09:45:00 09:45:00 [place] - Drive [facility] l Medicine Outpati ent Clinics 2018-07-29 2018-07-29 [facility] [id number] [address] 09:01:00 09:01:00 [place] - Drive [facility] Medicine Outpati ent Clinics 2018-03-15 2018-03-15 [facility] [id number] 16:41:00 16:41:00 [place] - Drive [facility] Medicine Outpati ent Clinics 2018-02-24 2018-02-24 [facility] [id number] 15:00:00 15:00:00 [place] - [employer] [facility] Medicine Outpati ent Clinics 2018-02-17 2018-02-17 [facility] [id number] 11:30:00 11:30:00 [place] - Drive [facility] Medicine Outpati ent Clinics 2017-11-16 2017-11-16 [facility] [id number] 15:45:00 15:45:00 [place] [employer] - Drive [facility] Medicine Outpati ent Clinics Results This patient has no known results.
[2020-11-20 10:56] LABS: Absolute Lymphocytes (CBC) 1.5 K/uL (0.7-4.9); Basophils % 0.8 % (0-1.3); Hematocrit 48.8 % (39.6-49.0); MPV 8.6 fL (7.6-11.3); RBC Red Blood Cell Count 5.53 M/uL (4.33-5.43)
[2020-11-20 11:05] LABS: Urine Blood Negative (Negative); Urine Glucose 3+ (Negative); Urine Protein Negative (Negative); Urine Specific Gravity 1.015 (1.005-1.030)
[2020-11-20 11:14] LABS: Albumin 3.7 g/dL (3.4-5.0); Bilirubin Direct 0.1 mg/dL (0-0.2); Bilirubin Total 0.4 mg/dL (0.2-1.0); C-Reactive Protein 3.1 mg/L (<3.00); Potassium 3.8 mmol/L (3.5-5.1); Protein, Total 7.5 g/dL (6.4-8.2)
--- NOTE | 2020-11-20 11:26 | RAD REPORT ---
EXAM DESCRIPTION: CT - Abdomen Pelvis W Contrast - 11/20/2020 11:08 am CLINICAL HISTORY: abd pain, diarrhea, hx of diverticulitis COMPARISON: Abdomen Pelvis W Contrast dated 04/03/2018 TECHNIQUE: Biphasic, helical CT imaging of the abdomen and pelvis was performed following 100 ml non -ionic IV contrast. No oral contrast administered. All CT scans are performed using dose optimization technique as appropriate and may include automated exposure control or mA/KV adjustment according to patient size. FINDINGS: No suspicious findings in the lung bases. The liver, spleen, and pancreas show no suspicious findings. Liver attenuation is borderline to mildl y fatty infiltrated. No portal vein abnormality. Gallbladder and biliary tree within normal limits. G allstones can be occult on CT imaging. Acute gallbladder process not suspected. Symmetric renal function is seen with no hydronephrosis or suspicious renal mass. No pyelonephritis o r acute parenchymal process. No bladder abnormalities. No adrenal abnormalities. A 2.9 centimeter sim ple cyst is present anterior mid left kidney with a 2.2 centimeter exophytic cyst in the lateral mid right kidney. These have enlarged from 2018 but still show benign characteristics. No gastric dilatation or gastric wall thickening. Stomach assessment is limited due to small quantity of intraluminal content. No duodenal abnormality. There are several loops of jejunum showing mildly enhancing reese. No bowel dilatation. Loops of ileum are unremarkable. The appendix is unremarkable. Moderate stool volume is present throughout most of the colon. Patient has moderately prominent diver ticulosis of the distal descending colon and sigmoid colon. The sigmoid colon is very redundant exten ding to the anterior upper mid abdomen. Stool volume distends the distal sigmoid colon and rectum. A mass or area of wall thickening not identified. No free air, free fluid or inflammatory stranding. No soft tissue mass or bulky lymphadenopathy. P atient has bilateral fat filled inguinal hernias. Disc and bone degenerative changes are present. No acute or destructive bone process. Vascular calcif ications are present. Infrarenal aorta maximum diameter is 2.6 cm similar to 2018 imaging. IMPRESSION: Patient has prominent nondilated loops of jejunum which could indicate a nonspecific ent eritis. No obstruction, appendicitis or other emergent finding. Additional nonacute findings detailed in the body of the report.
--- NOTE | 2020-11-20 11:48 | ER ---
Nurse's Notes [facility] Name: Yariel Vaughn Jr Age: 65 yrs Sex: Male : 1955 Arrival Date: 11/20/2020 Time: 09:12 Bed 26 Private MD: Rafa Fong Diagnosis: Gastroenteritis;Arthraligia Presentation: 11/20 09:21 Chief complaint: Patient states: i was telling the doctor yesterday all my joints hurt tw2 really bad. it comes and goes. i am just totally exhausted. yesterday was worse. also yesterday my RIGHT gland in my jaw was swollen and hurting. i have also had diarrhea and i think a lot of that is the medicines i take. i feel like it first started a couple of weeks ago. basically i just feel like crap. May 2019 i felt similar to this. years ago they diagnosed me with some form of arthritis and we switched medicine and it helped, but now it has come back. Chief complaint: Patient states: dr. Fong said i should have some stat labs that they couldn't do in their office. Coronavirus screen: At this time, the client does not indicate any symptoms associated with coronavirus-19. Ebola Screen: Patient denies travel to an Ebola-affected area in the 21 days before illness onset. Initial Sepsis Screen: Does the patient meet any 2 criteria? No. Patient's initial sepsis screen is negative. Does the patient have a suspected source of infection? No. Patient's initial sepsis screen is negative. Risk Assessment: Do you want to hurt yourself or someone else? Patient reports no desire to harm self or others. Onset of symptoms was November 20, 2020. 09:21 Method Of Arrival: Ambulatory tw2 09:21 Acuity: THEODORE 3 tw2 Triage Assessment: 09:25 General: Appears in no apparent distress. Behavior is calm, cooperative, appropriate tw2 for age. Pain: Complains of pain in all my joints. Historical: - Allergies: 09:28 PENICILLINS; tw2 - PMHx: 09:28 Diabetes - IDDM; Hyperlipidemia; Hypertension; tw2 11:00 Diverticulitis; vg1 - PSHx: 09:28 None; tw2 - Immunization history:: Adult Immunizations. - Social history:: Smoking status: . Screenin:03 Abuse screen: Denies threats or abuse. Nutritional screening: No deficits noted. tw2 Tuberculosis screening: No symptoms or risk factors identified. Fall Risk None identified. Assessment: 10:35 General: Appears in no apparent distress. comfortable, Behavior is calm, cooperative. vg1 Pain: Complains of pain in Pt states 'all over body pain' Pain currently is 4 out of 10 on a pain scale. Quality of pain is described as discomfort. Neuro: Level of Consciousness is awake, alert, obeys commands, Oriented to person, place, time, situation. Cardiovascular: Patient's skin is warm and dry. Respiratory: Airway is patent Respiratory effort is even, unlabored. GI: Abdomen is flat, non-distended, Reports 'abdominal achiness'. : No signs and/or symptoms were reported regarding the genitourinary system. EENT: No signs and/or symptoms were reported regarding the EENT system. Derm: Skin is intact, is healthy with good turgor. Musculoskeletal: Circulation, motion, and sensation intact. 11:53 Reassessment: Patient appears in no apparent distress at this time. Patient and/or vg1 family updated on plan of care and expected duration. Pain level reassessed. Patient is alert, oriented x 3, equal unlabored respirations, skin warm/dry/pink. Vital Signs: 09:21 BP 132 / 99; Pulse 78; Resp 17; Temp 98(O); Pulse Ox 97% on R/A; Weight 99.79 kg (R); tw2 Height 6 ft. 1 in. (185.42 cm); 10:40 BP 118 / 87; Pulse 66; Resp 18; Pulse Ox 98% on R/A; vg1 11:19 BP 114 / 76; Pulse 60; Resp 16; Pulse Ox 97% on R/A; vg1 11:53 BP 113 / 86; Pulse 63; Resp 16; Pulse Ox 95% on R/A; vg1 09:21 Body Mass Index 29.03 (99.79 kg, 185.42 cm) tw2 ED Course: 09:12 Patient arrived in ED. mr 09:12 Rafa Fong DO is Private Physician. mr 09:25 Triage completed. tw2 09:25 Arm band placed on. tw2 10:01 Ayan Beckett PA is PHCP. jmm 10:01 Aidan Mackay MD is Attending Physician. jmm 10:03 Bed in low position. Call light in reach. tw2 10:34 Emma Dent, RN is Primary Nurse. vg1 10:45 Initial lab(s) drawn, by me, sent to lab. Inserted saline lock: 20 gauge in right vg1 wrist, using aseptic technique. 11:00 Patient moved to MD ambulated. vg1 11:05 CT Abd/Pelvis - IV Contrast Only Sent. vg1 11:08 CT Abd/Pelvis - IV Contrast Only In Process Unspecified. EDMS 11:17 Patient moved back from MD. vg1 11:46 Rafa Fong DO is Referral Physician. jm 11:54 No provider procedures requiring assistance completed. IV discontinued, intact, vg1 bleeding controlled, No redness/swelling at site. Pressure dressing applied. Administered Medications: No medications were administered Outcome: 11:46 Discharge ordered by . jmm 11:54 Discharged to home ambulatory. vg1 11:54 Condition: stable 11:54 Discharge instructions given to patient, Instructed on discharge instructions, follow up and referral plans. medication usage, Demonstrated understanding of instructions, follow-up care, medications, Prescriptions given X 1. 11:55 Patient left the ED. vg1 Signatures: Dispatcher [employer] EDMS Ayan Beckett PA PA jmm Rivera, Mary mr Regine Quarles, RN RN tw2 Emma Dent, RN RN vg1
--- NOTE | 2020-11-20 11:48 | EDPHYS ---
Physician Documentation [facility] Name: Yariel Vaughn Jr Age: 65 yrs Sex: Male : 1955 Arrival Date: 11/20/2020 Time: 09:12 Bed 26 Private MD: Ajit [facility] ED Physician Aidan Mackay HPI: 11/20 10:08 This 65 yrs old Male presents to ER via Ambulatory with complaints of Joint jmm Pain. 10:08 The patient presents to the emergency department with diarrhea, abdominal pain. Onset: jmm The symptoms/episode began/occurred gradually, 2 week(s) ago. Possible causes: flare up of bowel problem, diverticulitis. The symptoms are aggravated by nothing. The symptoms are alleviated by nothing. Associated signs and symptoms: Pertinent positives: abdominal pain. This is a 65 year old male with a history of DM, HLP, HTN, diverticulitis that presents to the ED with complaints of 2 weeks of joint pain along with diarrhea. Denies vomiting. States having some abdominal pain in the llq. Denies fever. States having a history of an unknown type of arthritis. . Historical: - Allergies: 09:28 PENICILLINS; tw2 - PMHx: 09:28 Diabetes - IDDM; Hyperlipidemia; Hypertension; tw2 11:00 Diverticulitis; vg1 - PSHx: :28 None; tw2 - Immunization history:: Adult Immunizations. - Social history:: Smoking status: . ROS: 10:08 Constitutional: Negative for fever, chills, and weight loss, Cardiovascular: Negative jmm for chest pain, palpitations, and edema, Respiratory: Negative for shortness of breath, cough, wheezing, and pleuritic chest pain. 10:08 Abdomen/GI: Positive for nausea and vomiting, diarrhea. 10:08 MS/extremity: Positive for pain. 10:08 Allergy/Immunology: Positive for joint pain. 10:08 All other systems are negative. Exam: 10:08 Constitutional: This is a well developed, well nourished patient who is awake, alert, jmm and in no acute distress. Head/Face: atraumatic. Eyes: EOMI, no conjunctival erythema appreciated ENT: Moist Mucus Membranes Neck: Trachea midline, Supple Chest/axilla: Normal chest wall appearance and motion. Cardiovascular: Regular rate and rhythm. No edema appreciated Respiratory: Normal respirations, no respiratory distress appreciated 10:08 Back: Normal ROM Skin: General appearance color normal MS/ Extremity: Moves all extremities, no obvious deformities appreciated, no edema noted to the lower extremities Neuro: Awake and alert, normal gait Psych: Behavior is normal, Mood is normal, Patient is cooperative and pleasant 10:08 Abdomen/GI: Inspection: abdomen appears normal, Bowel sounds: normal, Palpation: soft, mild abdominal tenderness, in the left lower quadrant. Vital Signs: 09:21 BP 132 / 99; Pulse 78; Resp 17; Temp 98(O); Pulse Ox 97% on R/A; Weight 99.79 kg (R); tw2 Height 6 ft. 1 in. (185.42 cm); 10:40 BP 118 / 87; Pulse 66; Resp 18; Pulse Ox 98% on R/A; vg1 11:19 BP 114 / 76; Pulse 60; Resp 16; Pulse Ox 97% on R/A; vg1 11:53 BP 113 / 86; Pulse 63; Resp 16; Pulse Ox 95% on R/A; vg1 09:21 Body Mass Index 29.03 (99.79 kg, 185.42 cm) tw2 MDM: 10:08 Patient medically screened. [place] 11:35 Data reviewed: vital signs, nurses notes. Counseling: I had a detailed discussion with rené the patient and/or guardian regarding: the historical points, exam findings, and any diagnostic results supporting the discharge/admit diagnosis, lab results, radiology results, the need for outpatient follow up, to return to the emergency department if symptoms worsen or persist or if there are any questions or concerns that arise at home. ED course: Patient is alert and non toxic in appearance in the ED. No signs of sepsis. patient is advised to follow up with pcp and otherwise given strict return precautions. Patient understood and agrees with the plan of care. . 11/20 10:21 Order name: Basic Metabolic Panel [facility] 11/20 10:21 Order name: CBC with Diff; Complete Time: 11:29 [facility] 11/20 10:21 Order name: Hepatic Function; Complete Time: 11:18 [facility] 11/20 10:21 Order name: Lipase; Complete Time: 11:18 [facility] 11/20 10:21 Order name: ESR; Complete Time: 11: [facility] 05/04 10:21 Order name: CRP; Complete Time: 11:18 [facility] 11/20 10:21 Order name: IV Saline Lock; Complete Time: 10:48 [facility] 11/20 10:21 Order name: Labs collected and sent; Complete Time: 10:48 [facility] 11/20 10:21 Order name: Urine Dipstick-Ancillary (obtain specimen); Complete Time: 11:05 [facility] 11/20 10:21 Order name: CT Abd/Pelvis - IV Contrast Only; Complete Time: 11:29 [facility] 11/20 10:22 Order name: Basic Metabolic Panel; Complete Time: 11:18 [facility] 11/20 11:04 Order name: Urine Dipstick-Ancillary; Complete Time: 11:18 [facility] Administered Medications: No medications were administered Disposition: 11/21 11:17 Co-signature as Attending Physician, Aidan Mackay MD I agree with the assessment and [place] plan of care. Disposition: 11/20/20 11:46 Discharged to Home. Impression: Gastroenteritis, Arthraligia. - Condition is Stable. - Discharge Instructions: Joint Pain, Viral Gastroenteritis, Adult. - Prescriptions for Bentyl 20 mg Oral Tablet - take 2 tablet by ORAL route every 6 hours As needed; 40 tablet. - Medication Reconciliation Form, Thank You Letter, Antibiotic Education, Prescription Opioid Use form. - Follow up: Rafa Fong DO; When: 2 - 3 days; Reason: Recheck today's complaints, Continuance of care, Re-evaluation by your physician. Signatures: Dispatcher [employer] Aidan Childs MD MD cha Mickail, Joel, PA PA jmm Wise, Tara RN RN tw2 Emma Dent RN RN vg1 Corrections: (The following items were deleted from the chart) 11/20 11:55 11:46 11/20/2020 11:46 Discharged to Home. Impression: Gastroenteritis; Arthraligia. vg1 Condition is Stable. Forms are Medication Reconciliation Form, Thank You Letter, Antibiotic Education, Prescription Opioid Use. Follow up: Rafa Fong; When: 2 - 3 days; Reason: Recheck today's complaints, Continuance of care, Re-evaluation by your physician. rené
[2020-11-20 12:01] VITALS: TEMP 98
[2020-11-20 12:05] VITALS: BP 113/86; O2SAT 95
== END 2020-11-20 11:55 | disposition home or self-care (01) ==
LOC: ER 09:08
DX: K52.9 Noninfective gastroenteritis and colitis, unspecified (principal); M25.50 Pain in unspecified joint; I10 Essential (primary) hypertension; Z88.0 Allergy status to penicillin
CPT/HCPCS: 85025; 80048; 36415; 80076; 85652; 81003; 83690; 86140; 74177; Q9967; 99284

== ENCOUNTER 2025-05-09 09:20 | Emergency (ER) | payer MEDICAID ==
[2025-05-09] MEDS ORDERED: LIDOCAINE 1% 20 ML MDV ONE (09:40)
--- NOTE | 2025-05-09 11:18 | ER ---
Nurse's Notes [facility] Name: Yariel Vaughn Jr Age: 70 yrs Sex: Male : 1955 Arrival Date: 05/09/2025 Time: 09:20 Bed DX5 Private MD: Diagnosis: Left 3rd PIP joint dislocation Presentation: 05/09 09:35 Chief complaint: Patient states: slipped and fell on wet floor this morning , obvious iw deformity to left middle finger. Coronavirus screen: At this time, the client does not indicate any symptoms associated with coronavirus-19. Ebola Screen: No symptoms or risks identified at this time. Initial Sepsis Screen: Does the patient meet any 2 criteria? No. Patient's initial sepsis screen is negative. Does the patient have a suspected source of infection?. Risk Assessment: Do you want to hurt yourself or someone else? Patient reports no desire to harm self or others. Onset of symptoms was May 09, 2025. 09:35 Method Of Arrival: Ambulatory iw 09:35 Acuity: THEODORE 4 iw Historical: - Allergies: 09:26 PENICILLINS; ll1 - PMHx: 09:26 Diabetes - IDDM; Diverticulitis; Hyperlipidemia; Hypertension; ll1 - Immunization history:: Adult Immunizations up to date. - Infectious Disease History:: Denies. - Social history:: Smoking status: Reported history of juuling and/or vaping. Screenin:26 [facility] ED Fall Risk Assessment (Adult) History of falling in the last 3 months, iw including since admission Yes- single mechanical fall (1 pt) Confusion or Disorientation No (0 pts) Intoxicated or Sedated No (0 pts) Impaired Gait No (0 pts) Mobility Assist Device Used No (0 pt) Altered Elimination No (0 pt) Score/Fall Risk Level 0 - 2 = Low Risk Oriented to surroundings, Maintained a safe environment. Abuse screen: Denies threats or abuse. Denies injuries from another. Nutritional screening: No deficits noted. Tuberculosis screening: No symptoms or risk factors identified. Assessment: 09:45 General: Appears in no apparent distress. Behavior is calm, cooperative. Pain: iw Complains of pain in dorsal aspect of proximal phalanx of left middle finger and dorsal aspect of middle phalanx of left middle finger Pain currently is 5 out of 10 on a pain scale. Neuro: Level of Consciousness is awake, alert, obeys commands, Oriented to person, place, time, situation, Moves all extremities. Full function. Musculoskeletal: Swelling. 10:45 Reassessment: Patient appears in no apparent distress at this time. Patient and/or iw family updated on plan of care and expected duration. Pain level reassessed. Patient is alert, oriented x 3, equal unlabored respirations, skin warm/dry/pink. Vital Signs: 09:36 BP 142 / 95; Pulse 71; Resp 16; Pulse Ox 99% on R/A; iw ED Course: 09:22 Patient arrived in ED. im 09:24 Yash Galloway DO is Attending Physician. ms3 09:25 Partha Potter, RN is Primary Nurse. ll1 09:25 Arm band placed on Patient placed in an exam room, on a stretcher. ll1 09:36 Triage completed. iw 09:45 Patient has correct armband on for positive identification. iw 10:41 X-ray completed. Portable x-ray completed in exam room. Patient tolerated procedure mh1 well. 10:45 Hand Left 3 View XRAY In Process Unspecified. EDMS 11:00 Aluminum finger splint applied to dorsal aspect of middle phalanx of left middle finger iw and dorsal aspect of proximal phalanx of left middle finger. 11:24 No provider procedures requiring assistance completed. iw 11:25 Patient did not have IV access during this emergency room visit. iw Administered Medications: No medications were administered Medication: 10:45 VIS not applicable for this client. iw Outcome: 11:17 Discharge ordered by MD. ms3 11:24 Discharged to home ambulatory, iw 11:24 Condition: good 11:24 Discharge instructions given to patient, 11:26 Patient left the ED. iw Signatures: Dispatcher [employer] EDMS Yaritza Huddleston 1 Kenya Spear RN RN Partha Potter RN RN [facility] Yash Galloway DO DO ms3 Shanique Mcneal im
--- NOTE | 2025-05-09 11:18 | EDPHYS ---
Physician Documentation [facility] Name: Yariel Vaughn Jr Age: 70 yrs Sex: Male : 1955 Arrival Date: 05/09/2025 Time: 09:20 Bed DX5 Private MD: ED Physician Yash Galloway HPI: 05/09 09:38 This 70 yrs old Male presents to ER via Ambulatory with complaints of Finger Injury. ms3 09:38 70-year-old male with past medical history of diabetes, diverticulitis, hyperlipidemia, ms3 hypertension presents to the emergency department status post slip and fall on a wet floor. Patient states he did not hit his head and did not have loss of consciousness. Patient denies taking blood thinners. Patient states when falling his arm hit the wall and his left middle finger became deformed. Patient states pain is 2/10.. Historical: - Allergies: 09:26 PENICILLINS; ll1 - PMHx: 09:26 Diabetes - IDDM; Diverticulitis; Hyperlipidemia; Hypertension; ll1 - Immunization history:: Adult Immunizations up to date. - Infectious Disease History:: Denies. - Social history:: Smoking status: Reported history of juuling and/or vaping. ROS: 09:38 Constitutional: Negative for fever, and chills. Cardiovascular: Negative for chest ms3 pain, and palpitations. Respiratory: Negative for shortness of breath, cough, wheezing, and pleuritic chest pain, Abdomen/GI: Negative for abdominal pain, nausea, vomiting, diarrhea, and constipation, 09:38 MS/extremity: Positive for Left middle finger deformity, Exam: 09:38 Constitutional: This is a well developed, well nourished patient who is awake, alert, ms3 and in no acute distress. Cardiovascular: Regular rate and rhythm with a normal S1 and S2. No gallops, murmurs, or rubs. Normal PMI, no JVD. No pulse deficits. Respiratory: Lungs have equal breath sounds bilaterally, clear to auscultation and percussion. No rales, rhonchi or wheezes noted. No increased work of breathing, no retractions or nasal flaring. Abdomen/GI: Soft, non-tender, with normal bowel sounds. No distension or tympany. No guarding or rebound. No evidence of tenderness throughout. Skin: Warm, dry with normal turgor. Normal color with no rashes, no lesions, and no evidence of cellulitis. 09:38 Musculoskeletal/extremity: Extremities: noted in the Left middle finger: deformity, pain, Vital Signs: 09:36 BP 142 / 95; Pulse 71; Resp 16; Pulse Ox 99% on R/A; iw Procedures: 11:02 Reduction: of the 3rd PIP joint, using traction, Immobilized with finger splint, ms3 Patient tolerated well. Joint Treatment:. 11:03 Nerve block: (digital) of left 3rd digit. Medication: Lidocaine 1% without epinephrine ms3 Amount: 5 mls were injected, Effect: the patient's symptoms are improved, Set up for procedure. Performed by Yash Galloway DO Patient tolerated well. MDM: 09:37 Medical Screening Exam initiated ms3 09:38 Differential diagnosis: Left middle finger fracture vs dislocation vs sprain/strain. ms3 15:23 Data reviewed: vital signs, nurses notes, radiologic studies, and as a result, I will ms3 discharge patient. I considered the following discharge prescriptions or medication management in the emergency department Medications were administered in the Emergency Department. See MAR. Independent interpretation of the following test(s) in the Emergency Department X-Ray: My interpretation is Left hand x-ray images reviewed by me revealed third PIP dislocation without fracture. Counseling: I had a detailed discussion with the patient and/or guardian regarding the historical points, exam findings, and any diagnostic results supporting the discharge/admit diagnosis, radiology results, the need for outpatient follow up, to return to the emergency department if symptoms worsen or persist or if there are any questions or concerns that arise at home. Special discussion: I discussed with the patient/guardian in detail that at this point there is no indication for admission to the hospital. It is understood, however, that if the symptoms persist or worsen the patient needs to return immediately for re-evaluation. ED course: Discussed follow-up with Dr. Polanco with the patient. Patient understands agrees with plan. All questions were answered. Return cautions were discussed include worsening symptoms, or any other concerns. Patient states finger improved as he was bending it prior to placing the finger in a splint. 05/09 09:37 Order name: Hand Left 3 View XRAY; Complete Time: 13:36 ms3 Administered Medications: No medications were administered Disposition Summary: 05/09/25 11:17 Discharge Ordered Notes: Location: Home ms3 Condition: Stable ms3 Diagnosis - Left 3rd PIP joint dislocation ms3 Followup: ms3 - With: Private Physician - When: 2 - 3 days - Reason: Recheck today's complaints Discharge Instructions: - Discharge Summary Sheet ms3 - Finger or Thumb Dislocation ms3 - Finger or Thumb Dislocation, [id number] ms3 Forms: - Medication Reconciliation Form ms3 - Antibiotic Education ms3 - Prescription Opioid Use ms3 - Patient Portal Instructions ms3 - Leadership Thank You Letter ms3 Signatures: Dispatcher [employer] Kenya Reyes, IVAN RN iw Partha Potter RN RN ll1 Yash Galloway DO DO ms3
--- NOTE | 2025-05-09 11:40 | RAD REPORT ---
Exam:Hand Left 3 View CLINICAL HISTORY: Left hand pain FINDINGS: No fracture seen. Dislocation third middle phalanx.
[2025-05-09 17:23] VITALS: BP 142/95; O2SAT 99
== END 2025-05-09 11:26 | disposition home or self-care (01) ==
LOC: ER 09:20
PROC: 0RSXXZZ Reposition Left Finger Phalangeal Joint, External Approach (ICD-10-PCS; principal; 2025-05-09)
DX: S63.283A Dislocation of proximal interphalangeal joint of left middle finger, initial encounter (principal); W01.0XXA Fall on same level from slipping, tripping and stumbling without subsequent striking against object, initial encounter
CPT/HCPCS: 73130; 26770; J2003; 64450; 99283